=== PATIENT | male | born 2000 | race African-American/Black ===

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

== ENCOUNTER 2022-05-15 08:46 | Emergency (ER) | payer OTHER ==
[~2022-05-15] VITALS: Ht 175.3 cm; Wt 83.0 kg
[2022-05-15 08:50] VITALS: BP_SYST 130
--- NOTE | 2022-05-15 08:53 | NUR ---
Placed in room 6 . Placed on cardiac exercise specialist, blood pressure machine and pulse oximeter. To gown for exam. Side rails up. Report given to
--- NOTE | 2022-05-15 08:54 | NUR ---
ER at bedside examining patient.
--- NOTE | 2022-05-15 09:08 | NUR ---
PT BIB DAD, AWAKE AND ALERT AOX4. NO SOB OR DISTRESS, PT C/O TENDERNESS TO BOTH TESTICLE, X 3 DAYS. PT STATES PAIN 4/10. PT DENIES N/V. PT DENIES PAIN, OR DIFFICULTTY URINATING. PT DENIES HX AND SX.
[2022-05-15 09:14] LABS: BASOPHILS % (AUTO) 0.6 % (0.0-2.0); EOSINOPHILS % (AUTO) 0.7 % (0.0-4.0); HEMATOCRIT 46.5 % (36-54); HEMOGLOBIN 15.9 g/dL (14.0-18.0); LYMPHOCYTES # (AUTO) 2.4 K/uL (1.0-5.5); LYMPHOCYTES % (AUTO) 39.5 % (20.5-51.5); MEAN CORPUSCULAR HEMOGLOBIN 31 pg (27-31); MEAN CORPUSCULAR HGB CONC 34 % (32-36); MEAN CORPUSCULAR VOLUME 92 fL (79.0-98.0); MONOCYTES # (AUTO) 0.5 K/uL (0.0-1.0); MONOCYTES % (AUTO) 7.5 % (1.7-9.3); NEUTROPHILS # (AUTO) 3.1 K/uL (1.8-7.7); NEUTROPHILS % (AUTO) 51.7 % (40.0-70.0); PLATELET COUNT (AUTO) 216 K/uL (130-430); RED BLOOD CELL COUNT(AUTO) 5.09 MIL/uL (4.2-6.2); RED CELL DISTRIBUTION WIDTH 12.4 % (9.0-15.0); WHITE BLOOD COUNT (AUTO) 6.1 K/uL (4.5-11.0)
[2022-05-15 09:38] LABS: ALANINE AMINOTRANSFERASE 35 U/L (12-78); ALBUMIN 4.2 g/dL (3.4-4.8); ANION GAP 7 (5-15); ASPARTATE AMINOTRANSFERASE 21 U/L (10-37); CHLORIDE 104 mmol/L (98-107); CREATININE 0.96 mg/dL (0.55-1.30); GFR AFRICAN AMERICAN 130 mL/min (>90); GLUCOSE 100 mg/dL (70-99); TOTAL BILIRUBIN 0.8 mg/dL (0.0-1.0); UREA NITROGEN, BLOOD 15 mg/dL (8-21)
[2022-05-15 09:54] LABS: C-REACTIVE PROTEIN QUANT < 0.2 mg/dL (0-0.5); HCG,QUANTITATIVE 0 mIU/ML (0-2)
[2022-05-15 10:07] LABS: BILIRUBIN,URINE NEGATIVE (NEGATIVE); BLOOD, URINE NEGATIVE (NEGATIVE); CLARITY/URINE CLEAR (CLEAR); COLOR,URINE YELLOW (YELLOW); GLUCOSE,URINE NEGATIVE (NEGATIVE); KETONES,URINE NEGATIVE (NEGATIVE); LEUKOCYTE ESTERASE ,URINE NEGATIVE (NEGATIVE); NITRITE, URINE NEGATIVE (NEGATIVE); PH,URINE 6.5 (5.0-8.0); PROTEIN URINE NEGATIVE (NEGATIVE); UROBILINOGEN,URINE 0.2 (0.2-1.0)
[2022-05-15] MEDS ORDERED: IBUP-1971 PO (10:59)
[2022-05-15] MEDS ORDERED: TRAM50TA2 PO (10:59)
[2022-05-15 11:06] VITALS: BP_SYST 125
--- NOTE | 2022-05-15 11:09 | NUR ---
Patient given written and verbal discharge instructions and verbalizes understanding. ER MD DR RICHARD discussed with patient the results and treatment provided. Patient in stable condition. ID arm band removed. IV catheter removed intact and dressing applied, no active bleeding. Rx of MOTRIN AND TRAMADOL given. Patient educated on pain management and to follow up with PMD. Pain Scale 4/10. Opportunity for questions provided and answered. Medication side effect fact sheet provided.
== END 2022-05-15 11:09 | disposition home or self-care (01) ==
LOC: SED 08:46
DX: N45.2 Orchitis (principal); N50.811 Right testicular pain; N50.812 Left testicular pain; Z79.899 Other long term (current) drug therapy
CPT/HCPCS: 36415; 76870-TC; 80053; 81003; 84702; 85025; 86140; 99284